=== PATIENT | female | born 1945 | race Caucasian/White ===

== ENCOUNTER 2017-04-15 09:07 | Day surgery (SDC) | payer MEDICARE, BC ==
[~2017-04-15 09:07] MED LIST: Buffered Lidocaine 0.9% SYRIN* 5 ML/SYR SYRINGE INTRADERM ONE
[2017-04-15] MEDS ORDERED: Buffered Lidocaine 0.9% SYRIN* 5 ML/SYR SYRINGE ONE (09:36)
[2017-04-15] MEDS ORDERED: ceFAZolin 2 GM PREMIX (*) 2 GM/50 ML BAG IVPB ONE (09:36)
[2017-04-15] MEDS ORDERED: fentaNYL* 50 MCG/ML 2 ML VIAL (100 MCG VIAL) ONE (10:04)
[2017-04-15] MEDS ORDERED: Midazolam* 1 MG/ML 2 ML VIAL (2 MG) ONE (10:04)
[2017-04-15] MEDS ORDERED: DiMENhydriNATE IV* 50 MG/ML VIAL IV PUSH PRN (10:34)
[2017-04-15] MEDS ORDERED: fentaNYL* 50 MCG/ML 2 ML VIAL (100 MCG VIAL) IV PRN (10:34)
[2017-04-15] MEDS ORDERED: Ondansetron INJ* 2 MG/ML VIAL ONE (11:21)
[2017-04-15] MEDS ORDERED: Ketorolac INJ* 30 MG/ML 1 ML VIAL ONE (11:21)
[2017-04-15] MEDS ORDERED: Phenylephrine IV* 40 MCG/ML 10 ML SYRINGE ONE (11:23)
[2017-04-15] MEDS ORDERED: Lidocaine 1% INJ* 10 MG/ML 30 ML SDV ONE (11:27)
[2017-04-15] MEDS ORDERED: Ibuprofen TAB* 600 MG PO PRN (11:43)
[2017-04-15] MEDS ORDERED: oxyCODONE/Acetamin 5/325 MG* TAB PO PRN (11:44)
[2017-04-15] MEDS ORDERED: Ibuprofen TAB* 600 MG ONE (12:45)
[2017-04-15] MEDS ORDERED: Acetaminophen IV 1GM/100ML * 100 ML ONE (12:52)
[2017-04-15 13:31] VITALS: BP 134/60
--- NOTE | 2017-04-16 04:28 | OP ---
OPERATIVE REPORT: DATE OF OPERATION: 04/15/17 - [facility] DATE OF : 41 SURGEON: Calos Tong MD ANESTHESIOLOGIST: Dr. Robert. ANESTHESIA: General endotracheal anesthesia. PRE-OP DIAGNOSES: 1. Postmenopausal bleeding, thickened endometrium on ultrasound and endometrial polyp on office biopsy. 2. Vulvar lesion. POST-OP DIAGNOSES: 1. Postmenopausal bleeding, thickened endometrium on ultrasound and endometrial polyp on office biopsy. 2. Vulvar lesion. OPERATIVE PROCEDURE: Dilation hysteroscopy, MyoSure removal of polyp, and curettage. ESTIMATED BLOOD LOSS: Minimal, less than 20 cc. SPECIMENS: 1. Polyp. 2. Endometrial curettings. 3. Vulvar lesion. FLUIDS: Per Anesthesia. DRAINS: None. FINDINGS: Small anteverted uterus. No adnexal masses palpated. There is a long polyp within the endometrium originating at the fundus. It extended all the way down to the level of the internal cervical os. There was a 1 x 1 cm dark brown and light brown raised round mole on the left side of the vulva. The decision was made to excise that just based on its raised nature and multiple colors. COMPLICATIONS: None. COUNTS: Sponge, lap, and needle counts were correct x2. CONDITION: The patient tolerated the procedure well and was brought to recovery room, awake and in stable condition. DESCRIPTION OF PROCEDURE: The patient was brought to the operating room. When anesthesia was found to be adequate, the patient was prepped and draped in the usual sterile fashion in the dorsal lithotomy position. Exam under anesthesia was performed with the above findings noted. Weighted speculum was placed in the vagina. The anterior lip of the cervix was grasped with a single-tooth tenaculum and the cervix was gently and easily dilated with a graduated Valdes dilators. The MyoSure was introduced with the above findings noted. The polyp was removed in its entirety and sent to pathology. The hysteroscope was removed. The curettage was performed and endometrial curettings were sent to pathology. The tenaculum was removed from the cervix. All instruments removed from the vagina. Excellent hemostasis was noted. Attention was then turned to the vulvar lesion, which was excised using the scalpel. Two interrupted sutures of 3-0 Vicryl were placed. Excellent hemostasis was noted. Two Steri- Strips were placed over the area and the patient was brought to the recovery room, awake and in stable condition. [id number]/[facility] #: [id number] JUAN
== END 2017-04-15 13:57 | disposition home or self-care (01) ==
LOC: OR 09:07
PROVIDERS: ATTEND Obstetrics & Gynecology
DX: N95.0 Postmenopausal bleeding (principal); N84.0 Polyp of corpus uteri; C51.0 Malignant neoplasm of labium majus; I10 Essential (primary) hypertension; R00.2 Palpitations; E66.3 Overweight
CPT/HCPCS: 88305; 88341; 88342; 88360; A9270-GY; J0690; J1885; J2001; J2250; J2405; J3010